=== PATIENT | male | born 1960 | race Caucasian/White ===

== ENCOUNTER 2017-01-13 07:15 | Inpatient (IN) | payer BC ==
[2017-01-13] MEDS ORDERED: NORMAL SALINE 1,000 ML IV ONE ×6 (07:21→17:03)
--- OUTSIDE RECORDS SUMMARY | 2017-01-13 07:33 | XMS REPORT | Continuity of Care Document ---
:1960 Author Organization [facility] [employer] [place] [address] Care Team Providers Name Role Phone MaribellStephanie Primary Care Provider [phone] Source Comments This disclosure is being made pursuant to the [employer] program and maynot contain all information available regarding this patient.[facility] Active Allergies and Adverse Reactions Allergen Noted Date Severity Reactions Comments Gabapentin 10/10/2015 Low Anxiety Muscle spasms, and anxiety Levonorgestrel-Ethinyl Estrad 10/09/2016 Rhinitis Current Medications Be aware that medications may not be up to date as of this document. Alwaysverify current medications with the patient. Prescription Sig. Disp. Refills Start Date End Date Status metoprolol succinate daily. 09/19/2016 Active (TOPROL-XL) 100 MG 24 hr tablet carBAMazepine (TEGRETOL) Take 1 tablet by 60 tablet 6 10/09/2016 Active 200 MG tablet mouth 2 (two) times daily. For the first week, take 1/2 tab twice a day. Active Problems No known active problems Most Recent Encounters Date Type Specialty Providers Description 10/30/2016 Telephone Neurology Alfreda Estrada CMA Other Social History Tobacco Use Types Packs/Day Years Used Date Current Every Day Smoker 0.5 Tobacco Cessation:Ready to Quit: No; Counseling Given: Yes Comments: Alcohol Use Drinks/Week oz/Week Comments Yes Last Filed Vital Signs Vital Sign Reading Time Taken Blood Pressure 132/64 10/09/2016 10:57 AM CDT Pulse 70 10/09/2016 10:57 AM CDT Temperature - - Respiratory Rate - - Height 1.791 m (5' 10.5") 10/09/2016 10:57 AM CDT Weight 58.06 kg (128 lb) 10/09/2016 10:57 AM CDT Body Mass Index 18.1 10/09/2016 10:57 AM CDT Oxygen Saturation - - Plan of Care Date Type Specialty Providers Description 01/16/2017 Appointment Neurology Murtaza Cleary MD [address] [place] [address] 2 [place] [address] [phone] (Fax) Health Maintenance Due Date Last Done Comments Hepatitis C Screening 02/09/1978 Pneumococcal Medium Risk 19-64 yo (1 of 1 - PPSV23) 02/09/1979 Tetanus/Pertussis (1 - Tdap) 02/09/1979 Colonoscopy 02/09/2010 Well Adult Visit 02/09/2010 Influenza Immunization (#1) 2016 Results from Last 3 Months Comprehensive metabolic panel (10/18/2016 3:13 PM) Component Value Range Glucose 90Comment: 60-100 mg/dL Fasting Plasma Glucose (FPG)<100 MG/DL Impaired Fasting Glucose (IFG) 100-125 MG/DL Provisional Diagnosis of Diabetes Mellitus > ew=156 MG/DL (Diagnosis Must Be Confirmed) BUN, Blood 6(L) 8-26 mg/dL Creatinine 0.7 0.7-1.4 mg/dL Glomerular Filtration Rate 107 >90 mL/min/1.73mm2 Estimate Glomerlular Filtration Rate 124Comment:The estimated GFR >90 mL/min/1.73mm2 Estimate- has not been validated for women or patients with serious comorbid conditions, or with extremes of body size, muscle mass, or nutritional status. Calcium 9.0 8.4-10.2 mg/dL Sodium 134(L) 136-145 mmol/L Potassium 3.2(L) 3.4-4.9 mmol/L Chloride 93(L) 99-111 mmol/L CO2 31.5 21.0-32.0 mmol/L Albumin 2.8(L) 3.5-5.0 g/dL Total Protein 6.6 6.1-8.0 g/dL Bilirubin Total 1.1 0.2-1.2 mg/dL Alkaline Phosphatase 317(H) 40-150 U/L AST 24 5-34 U/L ALT 9 0-55 u/L Narrative Testing performed at [facility], [address] [address].Farm Equipment Mechanic Antione Hutchinson MD CBC auto differential (10/18/2016 3:13 PM) Component Value Range WBC 16.3(H) 3.1-11.0 x10^3/uL RBC 4.64 4.29-5.55 x10^6/uL Hemoglobin 13.0(L) 13.3-16.5 g/dL Hematocrit 39.2 39.2-48.0 % MCV 84.5 81.0-98.0 fL MCH 28.0 27.2-33.3 pg MCHC 33.2 31.7-35.6 g/dL RDW 13.8(H) 11.4-13.6 % SD-RDW 41.9 36.4-46.3 fL Platelets 359 147-370 x10^3/uL MPV 10.4 9.1-12.1 fL NE% 77.9(H) 42.0-76.0 % %LYMPH 10.2(L) 15.0-44.0 % %MONO 10.0 4.0-13.0 % % Eosinophils 1.0 0.0-6.0 % % Basophils 0.5 0.0-1.0 % Imm Gran Relative 0.4 0.0-1.0 % NE# 12.7(H) 1.2-7.3 x10^3/uL Lymphs # 1.7 0.6-3.5 x10^3/uL Young# 1.6(H) 0.2-0.9 x10^3/uL Eosinophil # 0.2 0.0-0.4 x10^3/uL Baso# 0.1 0.0-0.1 x10^3/uL Imm Gran Absolute 0.07 0.00-0.10 x10^3/uL Specimen BLOOD Narrative Testing performed at [facility], [address] [place] [address].Farm Equipment Mechanic Antione Hutchinson MD Insurance Payer Benefit Plan / Subscriber ID Type Phone Address Group BLUE CROSS OUT BLUE CROSS OUT [id number] Out of State [phone] STATION [address] [place] [address] [address] [place] [address]
--- NOTE | 2017-01-13 07:34 | ERNOTE ---
<NadineBrandinSapphire - Last Filed: 01/13/17 07:56> Medical Problem HPI - General Time Seen by Provider: 01/13/17 07:19 Source: family - common law partnerKatrin Exam Limitations: no limitations - Immun/Allergies/Home Medications Immunizations: IMMUNIZATION HX Immunizations Up to Date Yes History of Influenza Vaccine Yes Hx Pneumococcal Vaccination Yes Allergies/Adverse Reactions: Allergies No Known Allergies Allergy (Unverified 01/13/17 07:32) Home Medications: HOME MEDICATIONS Metoprolol Succinate [Toprol Xl] 100 mg PO 01/13/17 [Last Taken Unknown] - History of Present History Narrative: pt has not had anything to eat for three weeks. He has been getting weaker every day. He has been in bed for three weeks. Common law partnerKatrin called EMS today for extreme weakness and lethargy and EMS brought pt in. En route, patient's Bp was noted to be 80 over palp and was bolused with a liter of NS. His glucose was noted to be 49 and an amp of D50 was administered IV and pt was brought in. 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 Respiratory: Present: other - spouse reports cough Gastrointestinal/Abdominal: Present: other - partner states "every thing he eats goes straight thru him" Genitourinary: Present: no symptoms reported Musculoskeletal: Present: no symptoms reported Skin: Present: no symptoms reported Neurological: Present: weakness - extreme weakness - Patient's Past Medical History Patient History - Medical: Other Patient History - Cardiac/Respiratory: Hypertension Patient History - Cancer: No Hx of Cancer Patient History - Surgical Procedures: No surgical history Patient History - Other: None - Social History Living Situations: home Abuse History: No History of abuse Psych History: No pertinent hx Smoking Status: Current some day smoker Alcohol Use: none Drug Use: none - Immunizations Immunizations Up to Date: Yes Hx Pneumococcal Vaccination: Yes History of Influenza Vaccine: Yes Physical Exam - Physical Exam General Appearance: Present: lethargic, other - extremely emaciated and thin and weak. Head Exam: Present: normal inspection, no evidence of injury ED Progress - Vital Signs Patient's Vital Signs:: I have reviewed the patient's vital signs. Vital Signs: Vital Signs 01/13/17 07:22 Temperature 36.5 C Pulse Rate 100 Respiratory 22 H Rate Blood Pressure 99/63 O2 Sat by Pulse 100 Oximetry - Transfer of Care Physician Sign Out: Sapphire Mccoy Receiving Physician: Vanita Nayak Pending Results: Labs, X-ray results Departure - Departure Clinical Impression: Weakness, Malnourished Pneumonia Qualifiers: Pneumonia type: due to unspecified organism Laterality: right Lung location: upper lobe of lung Qualified Code(s): J18.1 - Lobar pneumonia, unspecified organism Disposition: [facility] Condition: Poor <Vanita Nayak - Last Filed: 01/13/17 11:02> Medical Problem HPI - General Source: patient, family Exam Limitations: clinical condition - Immun/Allergies/Home Medications Immunizations: IMMUNIZATION HX Immunizations Up to Date Yes History of Influenza Vaccine Yes Hx Pneumococcal Vaccination Yes - History of Present History Narrative: Patients common law spouse states that he has had an undefined neurological disease for six plus years. they have seen multiple doctors and specialist over the years without receiving a clear diagnosis. The only diagnosis they were given was central artery occlusion. His primary care doctor is Kely Reyna and no records are available here at this time. Over the last three weeks the patient has refused to eat and has gotten progressively weaker, no fluid in three days. When asks about feeling low he denies that but confirms that he feels like giving up. He denies pain, no SOB, no nausea no vomiting This morning he was unresponsive so his called EMS and he was found to by hypotensive and hypoglycemic, Physical Exam - Physical Exam General Appearance: Present: alert, cachetic Head Exam: Present: normal inspection Eye Exam: PERRL: bilateral Ears, Nose, Throat: Present: dry mucous membranes Respiratory: Present: no respiratory distress, normal breath sounds, lungs clear Cardiovascular/Chest: Present: regular rate, rhythm Gastrointestinal/Abdominal: Present: nontender Extremity Exam: Present: pedal edema - +3 Neurological Exam: Present: alert, oriented, other - flat affect Skin Exam: Present: warm/dry, pallor ED Progress - Results and Orders Patient's Lab Results:: I have reviewed the patient's lab results. - Vital Signs Patient's Vital Signs:: I have reviewed the patient's vital signs. Vital Signs: Vital Signs 01/13/17 01/13/17 01/13/17 07:22 07:42 07:54 Temperature 36.5 C Pulse Rate 100 97 94 Respiratory 22 H 20 23 H Rate Blood Pressure 99/63 100/64 96/63 O2 Sat by Pulse 100 100 100 Oximetry - EKG EKG: NSR, other - poor quality as patient is skin and bones EKG read: Interp. by me - X-Ray X-Ray #1 X-Ray: chest - right sided pneumonia Interpretation: Interp. 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
[2017-01-13 10:14] LABS: Urine Bilirubin 3 mg/dl (NEGATIVE); Urine Blood 250 /ul (NEGATIVE); Urine Ketone 5 mg/dL (NEGATIVE); Urine Protein 100 mg/dL (NEGATIVE); Urine Specific Gravity 1.025 SP.GR. (1.005-1.030); Urine Urobilinogen 4 EU/dl (NORMAL)
[2017-01-13] MEDS ORDERED: LEVOFLOXACIN/D5W 750 MG/150 ML BAG IV ONE (10:20)
[2017-01-13 10:26] LABS: Urine Appearance Turbid; Urine Bacteria 3+; Urine Color Brown; Urine Fine Granular Cast 0-5 /LPF; Urine Hyaline Cast 0-5 /LPF; Urine Nitrite Positive (NEGATIVE); Urine WBC 25-50 /hpf (0-5)
[2017-01-13 10:27] LABS: Hematocrit 35.9 % (42.0-52.0); Hemoglobin 11.8 gm/dL (13.5-18.0); Mean Cell Volume 85.7 fl (78-100); Mean Corpuscular Hemoglobin 28.2 pg (27-31); Mean Corpuscular Hgb Conc 32.9 g/dl (32-36); Mean Platelet Volume 11.8 fl (6.0-9.5); Platelet Count 76 K/mm3 (150-450); Red Blood Count 4.19 M/mm3 (4.7-6.0); Red Cell Distribution Width 16.3 % (11.5-14.0); White Blood Count 20.1 K/mm3 (4.0-10.5)
[2017-01-13 10:29] LABS: Total Cells Counted 100
[2017-01-13 10:31] LABS: Anisocytosis 1+; Band 10 % (0-2.0); Lymphocyte 11 % (20-51); Monocyte 2 % (0-9); Neutrophil 77 % (42-75); Neutrophil # 15.5 K/mm3 (1.3-6.0); Platelet Estimate Decreased (NORMAL); Poikilocytosis Trace; Polychromasia Trace
[2017-01-13 10:33] LABS: Toxic Granulation Trace
[2017-01-13 10:37] LABS: Albumin * 1.4 gm/dl (3.4-5.0); Bilirubin, Total 3.5 mg/dL (0.0-1.1); Ca. Corrected For Albumin 8.9 mg/dL (8.4-10.2); Calcium * 7.1 mg/dL (7.9-10.9); Carbon Dioxide 23.5 mmol/L (24-32.6); Potassium 3.5 mmol/L (3.4-4.6); Total Protein 5.7 gm/dL (6.2-8.2)
--- OUTSIDE RECORDS SUMMARY | 2017-01-13 10:59 | XMS REPORT | Continuity of Care Document ---
:1960 Author Organization [facility] [place] [address] Care Team Providers Name Role Phone MaribellStephanie Primary Care Provider [phone] Source Comments This disclosure is being made pursuant to the [employer] program and maynot contain all information available regarding this patient.[facility] Active Allergies and Adverse Reactions Allergen Noted [...] Description 01/16/2017 Appointment Neurology Murtaza Cleary MD [address] [place] [address] 2 [place] [address] [phone] (Fax) Health Maintenance Due Date Last Done [...] MG/DL Provisional Diagnosis of Diabetes Mellitus > pu=945 MG/DL (Diagnosis Must Be Confirmed) BUN, Blood [...] 9 0-55 u/L Narrative [facility] performed at [facility], [address] [address].Electric Cutter Operator Antione Hutchinson MD CBC auto differential (10/18/2016 [...] 1.2-7.3 x10^3/uL Lymphs # 1.7 0.6-3.5 x10^3/uL [place]# 1.6(H) 0.2-0.9 x10^3/uL Eosinophil # 0.2 0.0-0.4 x10^3/uL Baso# 0.1 0.0-0.1 x10^3/uL Imm Gran Absolute 0.07 0.00-0.10 x10^3/uL Specimen BLOOD Narrative Testing performed at [facility], [address] [place] [address].Electric Cutter Operator Antione Hutchinson MD Insurance Payer Benefit Plan / Subscriber ID Type Phone Address Group BLUE CROSS OUT BL[employer] CR[employer] OUT [id number] Out of State [phone] STATION [address] [place] [address] [address] [place] [address]
--- NOTE | 2017-01-13 12:43 | HP ---
Chief Complaint - Chief Complaint Date of Service: 01/13/17 Time of Service: 12:35 Chief Complaint: Starvation History of Present Illness: According to his live in friend, this 56 year old man became very depressed about 3 weeks ago and stopped eating anything and wouldn't get out of bed. He also developed diarrhea and a cough. Yesterday he stopped drinking. Today, she compelled him with the aid of law enforcement to come to the hospital via EMS. In 2010, he had a left eye retinal occlusion. About 6 months later he developed intractable head pain. According to his friend, multiple evaluations have failed to reveal a cause, in [place], here by Dr. Hays, or in [place]. She says he has never had in all the evaluations, a brain MRI. In our emergency room, he was found to be a victim of profound starvation, and to also have pneumonia (most likely aspiration, given his current weakened state and the [facility] location), and a probable UTI. The patient himself is unable to provide any useful history. He looks most like a survivor of a [place] camp. - Patient's Past Medical History Patient History - Medical: Other - left retinal artery occlusion, chronic head pain. Patient History - Cardiac/Respiratory: Hypertension Patient History - Cancer: No Hx of Cancer Patient History - Surgical Procedures: No surgical history Patient History - Other: None - Social History Living Situations: home Abuse History: No History of abuse Psych History: No pertinent hx Smoking Status: Current some day smoker Alcohol Use: none Drug Use: none - Immunizations Immunizations Up to Date: Yes Hx Pneumococcal Vaccination: Yes History of Influenza Vaccine: Yes Review Of Systems (GEN) - Review of Systems Generalized/Overall Review: Present: No Symptoms Reported - unable to provid, obtunded Allergies/Adverse Reactions: Allergies Allergy/AdvReac Type Severity Reaction Status Date / Time No Known Allergies Allergy Unverified 01/13/17 07:32 Home Medications: HOME MEDICATIONS Metoprolol Succinate [Toprol Xl] 100 mg PO 01/13/17 [Last Taken Unknown] Exam - Exam Vital Signs: Vital Signs - Last Taken Temp 36.5 C 01/13/17 07:22 Pulse 95 01/13/17 10:49 Resp 20 01/13/17 10:49 BP 83/58 01/13/17 10:49 Pulse Ox 100 01/13/17 10:49 Constitutional: Present: Obtunded - cachetic, emaciated, starved ENT Exam: Present: normal ENT inspection, dry mucous membranes Eye Exam: bilateral eye: PERRL, EOMI, other - sunken eyes Neck: Present: normal inspection Back Exam: Present: normal inspection Respiratory: Present: no respiratory distress, rhonchi Cardiovascular/Chest: Present: regular rate, rhythm, no murmur Peripheral Pulses: carotid (R): 1+, carotid (L): 1+, femoral (R): 1+, femoral (L ): 1+ Abdomen: Present: Normal bowel sounds, soft, nontender, nondistended, no rebound tenderness, no hepatospenomegaly, no masses Extremity: Present: no pedal edema, normal capillary refill, slow capillary refill, other - thin extremities like sticks Neurologic: Present: other - obtunded Appearance: Present: other Diagnostic Studies: Laboratory Results WBC 20.1 K/mm3 (4.0-10.5) H 01/13/17 10:18 RBC 4.19 M/mm3 (4.7-6.0) L 01/13/17 10:18 Hgb 11.8 gm/dL (13.5-18.0) L 01/13/17 10:18 Hct 35.9 % (42.0-52.0) L 01/13/17 10:18 MCV 85.7 fl (78-100) 01/13/17 10:18 MCH 28.2 pg (27-31) 01/13/17 10:18 MCHC 32.9 g/dl (32-36) 01/13/17 10:18 RDW 16.3 % (11.5-14.0) H 01/13/17 10:18 Plt Count 76 K/mm3 (150-450) L 01/13/17 10:18 MPV 11.8 fl (6.0-9.5) H 01/13/17 10:18 Neutrophils % (Manual) 77 % (42-75) H 01/13/17 10:18 Band Neuts % (Manual) 10 % (0-2.0) H 01/13/17 10:18 Lymphocytes % (Manual) 11 % (20-51) L 01/13/17 10:18 Monocytes % (Manual) 2 % (0-9) 01/13/17 10:18 Neutrophils # (Manual) 15.5 K/mm3 (1.3-6.0) H 01/13/17 10:18 Lymphocytes # (Manual) 2.2 k/mm3 (1.5-3.5) 01/13/17 10:18 Monocytes # (Manual) 0.4 k/mm3 (0.0-1.0) 01/13/17 10:18 Toxic Granulation Trace 01/13/17 10:18 Toxic Vacuolation Trace 01/13/17 10:18 Platelet Estimate Decreased (NORMAL) L 01/13/17 10:18 Polychromasia Trace 01/13/17 10:18 Poikilocytosis Trace 01/13/17 10:18 Anisocytosis 1+ 01/13/17 10:18 Sodium 132 mmol/L (132-142) 01/13/17 10:18 Plasma Sodium 132 mmol/L (130-142) 01/13/17 10:18 Potassium 3.5 mmol/L (3.4-4.6) 01/13/17 10:18 Chloride 94 mmol/L (97-106) L 01/13/17 10:18 Carbon Dioxide 23.5 mmol/L (24-32.6) L 01/13/17 10:18 Anion Gap 18.0 mmol/L (6.8-13.8) H 01/13/17 10:18 BUN 78 mg/dL (6-23) H 01/13/17 10:18 Creatinine 2.00 mg/dL (0.4-1.4) H 01/13/17 10:18 Est GFR (Non-Af Amer) 37 mL/min (60-130) L 01/13/17 10:18 BUN/Creatinine Ratio 39.0 (9.0-21.6) H 01/13/17 10:18 Random Glucose 95 mg/dL (70-110) 01/13/17 10:18 Lactic Acid, Venous 3.3 mmol/L (0.4-1.9) H* 01/13/17 10:18 Calcium 7.1 mg/dL (7.9-10.9) L 01/13/17 10:18 Calcium Adj for Albumin 8.9 mg/dL (8.4-10.2) 01/13/17 10:18 Total Bilirubin 3.5 mg/dL (0.0-1.1) H 01/13/17 10:18 AST 123 U/L (0-48) H 01/13/17 10:18 ALT 27 U/L (19-67) 01/13/17 10:18 Alkaline Phosphatase 243 U/L (50-170) H 01/13/17 10:18 Total Protein 5.7 gm/dL (6.2-8.2) L 01/13/17 10:18 Albumin 1.4 gm/dl (3.4-5.0) L 01/13/17 10:18 Procalcitonin 40.83 ng/mL (0.05-0.50) H 01/13/17 10:18 Urine Color Brown 01/13/17 10:05 Urine Appearance Turbid 01/13/17 10:05 Urine pH 5.0 pH (5.0-7.0) 01/13/17 10:05 Ur Specific [place] 1.025 SP.GR. (1.005-1.030) 01/13/17 10:05 Urine Protein 100 mg/dL (NEGATIVE) H 01/13/17 10:05 Urine Glucose (UA) 100 mg/dL (NEGATIVE) H 01/13/17 10:05 Urine Ketones 5 mg/dL (NEGATIVE) 01/13/17 10:05 Urine Blood 250 /ul (NEGATIVE) H 01/13/17 10:05 Urine Nitrate Positive (NEGATIVE) H 01/13/17 10:05 Urine Bilirubin 3 mg/dl (NEGATIVE) H 01/13/17 10:05 Urine Ictotest Positive (NEGATIVE) H 01/13/17 10:05 Prot Sulfosalicylic Acd 2+ mg/dL (0) H 01/13/17 10:05 Urine Urobilinogen 4 EU/dl (NORMAL) H 01/13/17 10:05 Ur Leukocyte Esterase 100 /ul (NEGATIVE) H 01/13/17 10:05 Urine RBC 10-25 /hpf (0-5) H 01/13/17 10:05 Urine WBC 25-50 /hpf (0-5) H 01/13/17 10:05 Ur Epithelial Cells 0-5 /hpf (0-5) 01/13/17 10:05 Urine Bacteria 3+ (NONE) H 01/13/17 10:05 Hyaline Casts 0-5 /LPF (NONE) H 01/13/17 10:05 Fine Granular Casts 0-5 /LPF (NONE) H 01/13/17 10:05 Urine Culture Comments Culture to follow 01/13/17 10:05 Assessment/Plan - Narrative Narrative: Rehydrate. Antibiotics. Psych consult on Saturday. MRI brain. EEG. Vitamins. Old records. Antidepressant. - Assessment/Plan (1) Aspiration pneumonia Problem: Acute Qualifiers: Aspiration pneumonia type: due to gastric secretions Laterality: right Lung location: middle lobe of lung Qualified Code(s): J69.0 - Pneumonitis due to inhalation of food and vomit (2) Sepsis Problem: Acute Qualifiers: Sepsis type: sepsis due to unspecified organism Qualified Code(s): A41.9 - Sepsis, unspecified organism (3) Severe malnutrition Problem: Acute (4) Depression, major Problem: Acute Qualifiers: Major depression recurrence: single episode Active/Remission status: currently active Major depression episode severity: severe Psychotic features: without psychotic features Qualified Code(s): F32.2 - Major depressive disorder, single episode, severe without psychotic features (5) Retinal artery occlusion, central Problem: Chronic Qualifiers: Laterality: left Qualified Code(s): H34.12 - Central retinal artery occlusion, left eye (6) UTI (urinary tract infection) Problem: Acute Qualifiers: Urinary tract infection type: site unspecified Hematuria presence: without hematuria Qualified Code(s): N39.0 - Urinary tract infection, site not specified (7) Headache Problem: Chronic Qualifiers: Headache type: unspecified Headache chronicity pattern: chronic headache Intractability: intractable Qualified Code(s): R51 - Headache
[2017-01-13 12:44] LABS: T4 Free * 0.65 ng/dL (0.76-1.46); TSH * 1.686 uIU/mL (0.358-3.74)
[2017-01-13] MEDS: POTASSIUM CHLORIDE 20 MEQ in DEXTROSE 5%-NORMAL SALINE 990 ML IV SCH ×2 (12:57→20:41)
--- NOTE | 2017-01-13 14:06 | PN ---
Progess Note - Interim Narrative: 01/13/17 14:04 I reviewed records from the [facility]. They describe central retinal artery occlusion and chronic neuropathic pain, left eye, but nothing else.
[2017-01-13] MEDS ORDERED: MULTIVIT INFUSN,ADULT 4,VIT K 10 ML, THIAMINE HCL 100 MG in NORMAL SALINE 1,000 ML IV SCH (19:45)
[2017-01-13] MEDS ORDERED: FUROSEMIDE 10 MG/ML VIAL IV ONE (21:30)
--- NOTE | 2017-01-13 22:05 | PN ---
Progess Note - Interim Narrative: 01/13/17 22:03 pt with minimal urine output. +5 liters iv fluids. current iv fluids adjusted. pt also with 2+ lower extremity edema. lungs clear. lasix 80 mg iv ordered x1. blood culture growing gram neg bacilli - abx changed to zosyn. all reviewed with dr lopez. sg
[2017-01-13] MEDS ORDERED: PIPERACILLIN SODIUM/TAZOBACTAM 3.375 GM in DEXTROSE 5 % IN WATER 100 ML IV SCH ×2 (23:00)
[2017-01-14] MEDS ORDERED: FUROSEMIDE 10 MG/ML VIAL IV ONE (00:18)
[2017-01-14] MEDS ORDERED: ALBUMIN HUMAN 12.5 G in Premix Bag 1 BAG IV SCH (00:30)
[2017-01-14 01:20] LABS: Hematocrit 38.4 % (42.0-52.0); Hemoglobin 12.5 gm/dL (13.5-18.0); Mean Cell Volume 87.3 fl (78-100); Mean Corpuscular Hemoglobin 28.4 pg (27-31); Mean Corpuscular Hgb Conc 32.6 g/dl (32-36); Mean Platelet Volume 13.3 fl (6.0-9.5); Platelet Count 60 K/mm3 (150-450); Red Cell Distribution Width 16.8 % (11.5-14.0); White Blood Count 35.2 K/mm3 (4.0-10.5)
[2017-01-14] MEDS: ALBUMIN HUMAN 12.5 G/50 ML BTL IV SCH ×2 (01:22→03:19)
[2017-01-14 01:34] LABS: Total Cells Counted 100
[2017-01-14 01:43] LABS: Albumin * 1.1 gm/dl (3.4-5.0); Anion Gap 23.1 mmol/L (6.8-13.8); BUN/Creatinine Ratio 43.6 (9.0-21.6); Bilirubin, Total 4.2 mg/dL (0.0-1.1); Ca. Corrected For Albumin 9.4 mg/dL (8.4-10.2); Calcium * 7.4 mg/dL (7.9-10.9); Carbon Dioxide 14.1 mmol/L (24-32.6); Potassium 4.2 mmol/L (3.4-4.6); Total Protein 5.9 gm/dL (6.2-8.2)
[2017-01-14] MEDS ORDERED: FUROSEMIDE 10 MG/ML VIAL ONE (01:43)
[2017-01-14 01:44] LABS: Band 9 % (0-2.0); Lymphocyte 5 % (20-51); Macrocytosis 1+; Monocyte 3 % (0-9); Neutrophil 83 % (42-75); Neutrophil # 29.2 K/mm3 (1.3-6.0); Platelet Estimate Decreased (NORMAL); Toxic Granulation Trace
[2017-01-14 01:45] LABS: Dohle Bodies Trace
[2017-01-14] MEDS: NOREPINEPHRINE BITARTRATE 4 MG in DEXTROSE 5 % IN WATER 496 ML IV PRN ×12 (02:49→03:36)
[2017-01-14 03:46] VITALS: BP 103/70
--- NOTE | 2017-01-14 03:59 | DS ---
<Judi Lujan - Last Filed: 01/30/17 02:23> Transfer Discharge Summary - Diagnosis(s)/Problems (1) Sepsis due to Gram-negative organism with septic shock Problem: Acute (2) Renal failure Problem: Acute (3) Hyperbilirubinemia Problem: Acute (4) Respiratory failure Problem: Acute (5) Aspiration pneumonia Problem: Acute (6) Depression, major Problem: Acute (7) Severe malnutrition Problem: Acute (8) UTI (urinary tract infection) Problem: Acute (9) Weakness Problem: Acute (10) Headache Problem: Chronic (11) Retinal artery occlusion, central Problem: Chronic - Course Description of Stay: Sabas is a 56 year old male patient of Dr. Reyna who presented to the ER on due to profound starvation and severe weakness. ER eval revealed RML pneumonia and UA c/w UTI. Patient became depressed about 3 weeks prior to admission and stopped eating. 3 days prior to admission, he stopped drinking fluids. Patient was admitted with aspiration pneumonia, sepsis, severe malnutrion, uti and major depression. aggressive IV fluid hydration was initiated in the ER and he was started on iv levaquin. shortly after 2200 on the day of admission, pt with minimal urine output. +5 liters iv fluids. current iv fluids adjusted. pt also with 2+ lower extremity edema. lungs clear. lasix 80 mg iv ordered x1. blood culture growing gram neg bacilli - abx changed to zosyn. went to check on pt at 2300, found to be 87% on RA. called RT. pt had to be placed on 50% venti mask at 15L to sat 92%. still no urine output. orders to give 80 lasix x1, transfer to scu and place on dopamine gtt. at 2345, pt rolled to side and desats to 88% on 15L 50% venti mask - placed on non-rebreather. orders to given albumin q 2 hours. rt also notified of change and went to assess patient. pt continued to decline shortly after midnight and was transferred to the SCU. started on dopamine gtt per orders. HR went up to 125, sbp went down to 87. RR went up. orders given to dc dopamine gtt and start levophed gtt to keep SBP 95-105. at 2 am, started process to transfer pt to facility with ICU and inpatient dialysis given likely renal failure. pt will also need facility with family protection specialist given new onset respiratory failure. called family friend and medical contact Diana who came up to the hospital. updated her on plan of care. offered to transfer [place], patient and friend declined stating they have had bad experience with [place]. Thus, offered to transfer pt to [facility] and pt and friend accepted. Call to [facility] and spoke with Dr Ventura (ICU MD) who accepted pt. attempted to transfer pt by air but [facility] declined stating FOG. thus pt transferred by [facility] ambulance. patient was started on levophed gtt and titrated up to 6 mcg before blood pressure stabilized enough for the transfer to [facility]. pt left the hospital in critical condition via EMS to [facility]. Procedures Performed: none - Results and Findings Results and Findings: Laboratory Results - last 24 hr 01/13/17 01/13/17 01/13/17 13:18 16:08 Unknown WBC RBC Hgb Hct MCV MCH MCHC RDW Plt Count MPV Neutrophils % (Manual) Band Neuts % (Manual) Lymphocytes % (Manual) Monocytes % (Manual) Neutrophils # (Manual) Lymphocytes # (Manual) Monocytes # (Manual) Toxic Granulation Toxic Vacuolation Dohle Bodies Platelet Estimate Macrocytosis Sodium Plasma Sodium Potassium Chloride Carbon Dioxide Anion Gap BUN Creatinine Est GFR (Non-Af Amer) BUN/Creatinine Ratio Random Glucose Lactic Acid, Venous 3.0 H* 3.1 H* Calcium Calcium Adj for Albumin Total Bilirubin AST ALT Alkaline Phosphatase Total Protein Albumin TSH 1.686 Free T4 0.65 L 01/14/17 01/14/17 01:05 01:05 WBC 35.2 H D RBC 4.40 L Hgb 12.5 L Hct 38.4 L MCV 87.3 MCH 28.4 MCHC 32.6 RDW 16.8 H Plt Count 60 L MPV 13.3 H Neutrophils % (Manual) 83 H Band Neuts % (Manual) 9 H Lymphocytes % (Manual) 5 L Monocytes % (Manual) 3 Neutrophils # (Manual) 29.2 H Lymphocytes # (Manual) 1.8 Monocytes # (Manual) 1.1 H Toxic Granulation Trace Toxic Vacuolation Trace Dohle Bodies Trace Platelet Estimate Decreased L Macrocytosis 1+ Sodium 131 L Plasma Sodium 131 Potassium 4.2 Chloride 98 Carbon Dioxide 14.1 L Anion Gap 23.1 H BUN 71 H Creatinine 1.63 H Est GFR (Non-Af Amer) 47 L D BUN/Creatinine Ratio 43.6 H Random Glucose 125 H D Lactic Acid, Venous Calcium 7.4 L Calcium Adj for Albumin 9.4 Total Bilirubin 4.2 H AST 82 H ALT 25 Alkaline Phosphatase 232 H Total Protein 5.9 L Albumin 1.1 L TSH Free T4 - Medications Medications: Active Medications Potassium Chloride 20 meq/ (Dextrose/Sodium Chloride) 1,000 mls @ 125 mls/hr IV .Q8H [facility] Stop: 02/12/17 12:16 Last Admin: 01/13/17 20:41 Dose: 125 mls/hr Parenteral Vitamin Supplement 10 ml/ Thiamine HCl 100 mg/Sodium Chloride 1,011 mls @ 40 mls/hr IV .Q24H [facility] Stop: 02/12/17 19:46 Last Admin: 01/13/17 21:57 Dose: 40 mls/hr Piperacillin Sod/Tazobactam (Sod 3.375 gm/ Dextrose/Water) 100 mls @ 25 mls/hr IV Q6H [facility] PRN Reason: Protocol Stop: 02/12/17 23:01 Last Admin: 01/14/17 00:21 Dose: 25 mls/hr Albumin Human (Albuminar-25) 12.5 g in 50 mls @ 50 mls/hr IV Q2H [facility] Stop: 02/13/17 01:01 Last Admin: 01/14/17 03:19 Dose: 50 mls/hr Norepinephrine Bitartrate 4 mg (/ Dextrose/Water) 500 mls @ 7.5 mls/hr IV TITR PRN; Protocol; 1 MCG/MIN PRN Reason: Hypotension Stop: 02/13/17 02:30 Last Admin: 01/14/17 03:36 Dose: 1 mcg/min, 7.5 mls/hr Discontinued Medications Furosemide (Lasix) 80 mg IV ONCE ONE Stop: 01/13/17 21:31 Last Admin: 01/13/17 22:02 Dose: 80 mg Furosemide (Lasix) 80 mg IV ONCE ONE Stop: 01/14/17 00:19 Last Admin: 01/14/17 02:57 Dose: 80 mg Sodium Chloride (Sodium Chloride 0.9%) 1,000 mls @ 999 mls/hr IV .Q1H1M ONE Stop: 01/13/17 08:21 Last Infusion: 01/13/17 10:33 Dose: Infused Sodium Chloride (Sodium Chloride 0.9%) 1,000 mls @ 999 mls/hr IV .Q1H1M ONE Stop: 01/13/17 08:39 Last Infusion: 01/13/17 10:58 Dose: Infused Sodium Chloride (Sodium Chloride 0.9%) 1,000 mls @ 500 mls/hr IV .Q2H ONE Stop: 01/13/17 10:41 Last Infusion: 01/13/17 10:57 Dose: Infused Levofloxacin/Dextrose (Levaquin) 750 mg in 150 mls @ 100 mls/hr IV ONCE ONE PRN Reason: Protocol Stop: 01/13/17 11:49 Last Infusion: 01/13/17 10:34 Dose: Infused Sodium Chloride (Sodium Chloride 0.9%) 1,000 mls @ 500 mls/hr IV .Q2H ONE Stop: 01/13/17 12:55 Last Admin: 01/13/17 10:57 Dose: 500 mls/hr Sodium Chloride (Sodium Chloride 0.9%) 1,000 mls @ 999 mls/hr IV .Q1H1M ONE Stop: 01/13/17 14:50 Last Infusion: 01/13/17 15:10 Dose: Infused Sodium Chloride (Sodium Chloride 0.9%) 1,000 mls @ 999 mls/hr IV .Q1H1M ONE Stop: 01/13/17 18:03 Last Infusion: 01/13/17 18:22 Dose: Infused Dopamine HCl/Dextrose (Dopamine 400 Mg/D5w 250 Ml) 400 mg in 250 mls @ 12.533 mls/hr IV TITR PRN; Protocol; 6 MCG/KG/MIN PRN Reason: HYPOTENSION Stop: 02/13/17 00:19 Last Admin: 01/14/17 02:03 Dose: 6 mcg/kg/min, 12.533 mls/hr - Disposition Disposition: Other health care facility Condition: Critical Discharge Date: 01/14/17 Discharge Time: 03:58 <Sabas Payne - Last Filed: 01/30/17 09:41> Transfer Discharge Summary - Diagnosis(s)/Problems (1) Aspiration pneumonia Problem: Acute (2) Sepsis Problem: Acute (3) Severe malnutrition Problem: Acute (4) Depression, major Problem: Acute (5) Retinal artery occlusion, central Problem: Chronic (6) UTI (urinary tract infection) Problem: Acute (7) Headache Problem: Chronic - Course Description of Stay: I agree with the need for transfer, and the plan of care. I directed all of our nurse practitioner hospitalist's care for this patient. - Medications Medications: Active Medications Discontinued Medications Furosemide (Lasix) 80 mg IV ONCE ONE Stop: 01/13/17 21:31 Last Admin: 01/13/17 22:02 Dose: 80 mg Furosemide (Lasix) 80 mg IV ONCE ONE Stop: 01/14/17 00:19 Last Admin: 01/14/17 02:57 Dose: 80 mg Sodium Chloride (Sodium Chloride 0.9%) 1,000 mls @ 999 mls/hr IV .Q1H1M ONE Stop: 01/13/17 08:21 Last Infusion: 01/13/17 10:33 Dose: Infused Sodium Chloride (Sodium Chloride 0.9%) 1,000 mls @ 999 mls/hr IV .Q1H1M ONE Stop: 01/13/17 08:39 Last Infusion: 01/13/17 10:58 Dose: Infused Sodium Chloride (Sodium Chloride 0.9%) 1,000 mls @ 500 mls/hr IV .Q2H ONE Stop: 01/13/17 10:41 Last Infusion: 01/13/17 10:57 Dose: Infused Levofloxacin/Dextrose (Levaquin) 750 mg in 150 mls @ 100 mls/hr IV ONCE ONE PRN Reason: Protocol Stop: 01/13/17 11:49 Last Infusion: 01/13/17 10:34 Dose: Infused Sodium Chloride (Sodium Chloride 0.9%) 1,000 mls @ 500 mls/hr IV .Q2H ONE Stop: 01/13/17 12:55 Last Admin: 01/13/17 10:57 Dose: 500 mls/hr Potassium Chloride 20 meq/ (Dextrose/Sodium Chloride) 1,000 mls @ 125 mls/hr IV .Q8H [facility] Stop: 02/12/17 12:16 Last Admin: 01/13/17 20:41 Dose: 125 mls/hr Sodium Chloride (Sodium Chloride 0.9%) 1,000 mls @ 999 mls/hr IV .Q1H1M ONE Stop: 01/13/17 14:50 Last Infusion: 01/13/17 15:10 Dose: Infused Sodium Chloride (Sodium Chloride 0.9%) 1,000 mls @ 999 mls/hr IV .Q1H1M ONE Stop: 01/13/17 18:03 Last Infusion: 01/13/17 18:22 Dose: Infused Parenteral Vitamin Supplement 10 ml/ Thiamine HCl 100 mg/Sodium Chloride 1,011 mls @ 40 mls/hr IV .Q24H [facility] Stop: 02/12/17 19:46 Last Admin: 01/13/17 21:57 Dose: 40 mls/hr Piperacillin Sod/Tazobactam (Sod 3.375 gm/ Dextrose/Water) 100 mls @ 25 mls/hr IV Q6H [facility] PRN Reason: Protocol Stop: 02/12/17 23:01 Last Admin: 01/14/17 00:21 Dose: 25 mls/hr Dopamine HCl/Dextrose (Dopamine 400 Mg/D5w 250 Ml) 400 mg in 250 mls @ 12.533 mls/hr IV TITR PRN; Protocol; 6 MCG/KG/MIN PRN Reason: HYPOTENSION Stop: 02/13/17 00:19 Last Admin: 01/14/17 02:03 Dose: 6 mcg/kg/min, 12.533 mls/hr Albumin Human (Albuminar-25) 12.5 g in 50 mls @ 50 mls/hr IV Q2H [facility] Stop: 02/13/17 01:01 Last Admin: 01/14/17 03:19 Dose: 50 mls/hr Norepinephrine Bitartrate 4 mg (/ Dextrose/Water) 500 mls @ 7.5 mls/hr IV TITR PRN; Protocol; 1 MCG/MIN PRN Reason: Hypotension Stop: 02/13/17 02:30 Last Admin: 01/14/17 03:36 Dose: 1 mcg/min, 7.5 mls/hr
[2017-01-14] MEDS ORDERED: MULTIVITAMINS 1 CAP CAPSULE PO SCH (09:00)
[2017-01-14] MEDS ORDERED: CHOLECALCIFEROL 5,000 UNIT TABLET PO SCH (09:00)
[2017-01-14] MEDS ORDERED: FOLIC ACID 1 MG TABLET PO SCH (09:00)
[2017-01-14] MEDS ORDERED: CYANOCOBALAMIN 1,000 MCG TABLET PO SCH (09:00)
[2017-01-14] MEDS ORDERED: ESCITALOPRAM OXALATE 10 MG TAB PO SCH (09:00)
[2017-01-14] MEDS ORDERED: CALCIUM CARBONATE 500 MG TAB.CHEW PO SCH (09:00)
[2017-01-14] MEDS ORDERED: LEVOFLOXACIN/D5W 750 MG/150 ML BAG IV SCH (10:58)
== END 2017-01-14 03:40 | disposition short-term general hospital (02) | DRG 871 ==
LOC: ER 07:15 → MS 10:52 → SCU 01-14 00:47
PROVIDERS: ADMIT Allergy & Immunology; ATTEND Allergy & Immunology
DX: A41.51 Sepsis due to Escherichia coli [E. coli] (principal); R65.21 Severe sepsis with septic shock; J69.0 Pneumonitis due to inhalation of food and vomit; E43 Unspecified severe protein-calorie malnutrition; Z68.1 Body mass index [BMI] 19.9 or less, adult; F32.2 Major depressive disorder, single episode, severe without psychotic features; H34.12 Central retinal artery occlusion, left eye; N39.0 Urinary tract infection, site not specified; N17.9 Acute kidney failure, unspecified; R51 Headache; F17.210 Nicotine dependence, cigarettes, uncomplicated; I10 Essential (primary) hypertension